=== PATIENT | female | born 1955 | race Caucasian/White ===

== ENCOUNTER → 2017-02-09 | Outpatient (CLI) | payer OTHER ==
[~2017-02-09] MED LIST: ACET50TA PO; ALBU17IN INH; BACT800T5 PO; CALC600T10 PO; CALCTAB7 PO; CEFD1CAP8 PO; CEFD300CAP PO; CEPH2CAP PO; COUM10TA PO; COUM7.5T PO; DARV100T PO; MOME50SP; MULTCAP PO; NEXI40CA PO; NEXI40GR PO; SING10TA32 PO; VITA100066 PO; VITA200015 PO; VITA500C24 PO; VITA500T88 PO; VITAD1000T PO; VITMTA PO; WARF-23 PO
[2017-02-09 06:36] LABS: MEAN CORPUSCULAR HEMOGLOBIN 29.2 pg (27.0-33.0); MEAN CORPUSCULAR HGB CONC 33.4 g/dl (32.0-36.5); MEAN CORPUSCULAR VOLUME 87.5 fl (80.0-96.0); RED CELL DISTRIBUTION WIDTH 13.3 % (11.5-14.5)
[2017-02-09 06:55] LABS: ANION GAP 6 MEQ/L (8-16); BLOOD UREA NITROGEN 15 MG/DL (7-18); CALCIUM LEVEL 8.3 MG/DL (8.5-10.1); CARBON DIOXIDE LEVEL 27 MEQ/L (21-32); CHLORIDE LEVEL 107 MEQ/L (98-107); CHOLESTEROL LEVEL 211 MG/DL (<200); CREATININE FOR GFR 0.98 MG/DL (0.55-1.02); GLOMERULAR FILTRATION RATE > 60.0 (>51); GLUCOSE, FASTING 102 MG/DL (70-105); SODIUM LEVEL 140 MEQ/L (136-145); TRIGLYCERIDES LEVEL 191 MG/DL (<150)
== END ==
LOC: M LAB 06:01
PROVIDERS: ATTEND Nurse Practitioner Adult Health
DX: J45.30 Mild persistent asthma, uncomplicated (principal); R03.0 Elevated blood-pressure reading, without diagnosis of hypertension; Z79.01 Long term (current) use of anticoagulants

== ENCOUNTER → 2017-09-08 | Outpatient (CLI) | payer OTHER ==
[~2017-09-08] MED LIST changes: -CALC600T10 PO; +CALC600T31 PO
[2017-09-08 06:48] LABS: BASO % 0.4 % (0.0-1.0); EOS # 0.1 10^3/uL (0.0-0.50); EOS % 0.8 % (0.0-3.0); IMMATURE GRANULOCYTE % 0.3 % (0-0); LYMPH # 2.9 10^3/uL (1.5-4.5); LYMPH % 37.6 % (24.0-44.0); MEAN CORPUSCULAR HEMOGLOBIN 28.6 pg (27.0-33.0); MEAN CORPUSCULAR HGB CONC 33.4 g/dl (32.0-36.5); MEAN CORPUSCULAR VOLUME 85.7 fl (80.0-96.0); MONO # 0.4 10^3/uL (0.0-0.8); MONO % 5.6 % (0.0-5.0); NEUTROPHILS # 4.3 10^3/uL (1.8-7.7); NEUTROPHILS % 55.3 % (36.0-66.0); PLATELET COUNT, AUTOMATED 231 10^3/uL (150-450); WHITE BLOOD COUNT 7.8 10^3/uL (4.0-10.0)
[2017-09-08 07:21] LABS: ANION GAP 9 MEQ/L (8-16); BLOOD UREA NITROGEN 19 MG/DL (7-18); CALCIUM LEVEL 8.6 MG/DL (8.8-10.2); CARBON DIOXIDE LEVEL 27 MEQ/L (21-32); CHLORIDE LEVEL 105 MEQ/L (98-107); CHOLESTEROL LEVEL 179 MG/DL (<200); CREATININE FOR GFR 0.97 MG/DL (0.55-1.02); GLOMERULAR FILTRATION RATE > 60.0 (>45); GLUCOSE, FASTING 97 MG/DL (80-110); POTASSIUM SERUM 4.2 MEQ/L (3.5-5.1); SODIUM LEVEL 141 MEQ/L (136-145); TRIGLYCERIDES LEVEL 123 MG/DL (<150)
== END ==
LOC: M LAB 06:18
PROVIDERS: ATTEND Nurse Practitioner Adult Health
DX: Z00.00 Encounter for general adult medical examination without abnormal findings (principal); E78.5 Hyperlipidemia, unspecified; Z79.01 Long term (current) use of anticoagulants

== ENCOUNTER → 2018-02-22 | Outpatient (CLI) | payer OTHER ==
[2018-02-22 06:45] LABS: BASO % 0.4 % (0.0-1.0); EOS # 0.2 10^3/uL (0.0-0.50); HEMOGLOBIN 13.5 g/dl (12.0-15.5); IMMATURE GRANULOCYTE % 0.5 % (0-3.0); LYMPH # 3.1 10^3/uL (1.5-4.5); LYMPH % 40.8 % (24.0-44.0); MEAN CORPUSCULAR HEMOGLOBIN 29.7 pg (27.0-33.0); MEAN CORPUSCULAR HGB CONC 34.6 g/dl (32.0-36.5); MEAN CORPUSCULAR VOLUME 85.7 fl (80.0-96.0); MONO # 0.4 10^3/uL (0.0-0.8); MONO % 5.2 % (0.0-5.0); NEUTROPHILS # 3.9 10^3/uL (1.8-7.7); NEUTROPHILS % 51.1 % (36.0-66.0); PLATELET COUNT, AUTOMATED 209 10^3/uL (150-450); RED BLOOD COUNT 4.55 10^6/uL (4.00-5.40); RED CELL DISTRIBUTION WIDTH 13.4 % (11.5-14.5); WHITE BLOOD COUNT 7.5 10^3/uL (4.0-10.0)
[2018-02-22 07:09] LABS: ALBUMIN 3.7 GM/DL (3.2-5.2); ALBUMIN/GLOBULIN RATIO 1.16 (1.00-1.93); ALKALINE PHOSPHATASE 124 U/L (45-117); ALT/SGPT 31 U/L (12-78); ANION GAP 7 MEQ/L (8-16); AST/SGOT 17 U/L (7-37); BILIRUBIN,TOTAL 0.3 MG/DL (0.2-1.0); BLOOD UREA NITROGEN 19 MG/DL (7-18); CALCIUM LEVEL 8.5 MG/DL (8.8-10.2); CARBON DIOXIDE LEVEL 26 MEQ/L (21-32); CHLORIDE LEVEL 108 MEQ/L (98-107); CREATININE FOR GFR 1.07 MG/DL (0.55-1.30); GLOMERULAR FILTRATION RATE 55.7 (>45); GLUCOSE, FASTING 109 MG/DL (70-100); POTASSIUM SERUM 4.2 MEQ/L (3.5-5.1); SODIUM LEVEL 141 MEQ/L (136-145); TOTAL PROTEIN 6.9 GM/DL (6.4-8.2)
[2018-02-22 10:46] LABS: CA15-3 ANTIGEN 5.6 U/ML (<32.4)
[2018-02-23 11:31] LABS: HEPATITIS C VIRUS ABY INDEX < 0.0 INDEX (<0.8)
== END ==
LOC: M LAB 06:07
DX: R11.0 Nausea (principal); Z85.3 Personal history of malignant neoplasm of breast; Z01.89 Encounter for other specified special examinations; R05 Cough
CPT/HCPCS: 71046

== ENCOUNTER → 2018-03-07 | Outpatient (CLI) | payer OTHER ==
[2018-03-07 06:50] LABS: ESTIMATED AVERAGE GLUCOSE 108 MG/DL (60-110); HEMOGLOBIN A1c 5.4 %
== END ==
LOC: M LAB 06:08
DX: R73.01 Impaired fasting glucose (principal)
CPT/HCPCS: 83036

== ENCOUNTER → 2018-03-24 | Outpatient (CLI) | payer OTHER ==
[~2018-03-24] MED LIST changes: -ACET50TA PO; -ALBU17IN INH; -BACT800T5 PO; -CALC600T31 PO; -CALCTAB7 PO; -CEFD1CAP8 PO; -CEFD300CAP PO; -CEPH2CAP PO; -COUM10TA PO; -COUM7.5T PO; -DARV100T PO; +ISOVUE-370 76% 100ML VIAL (Q9967) As Ordered; -MOME50SP; -MULTCAP PO; -NEXI40CA PO; -NEXI40GR PO; -SING10TA32 PO; -VITA100066 PO; -VITA200015 PO; -VITA500C24 PO; -VITA500T88 PO; -VITAD1000T PO; -VITMTA PO; -WARF-23 PO
[2018-03-29 10:16] LABS: L PNEUMOPHILIA 1-6 IgG <1:128 (<1:128)
[2018-03-29 10:16] LABS: L PNEUMOPHILIA 1-6 IgM < 1:16 (< 1:16); MYCOPLASMA PNEUMONIAE IgG 222 U/mL (0-99); MYCOPLASMA PNEUMONIAE IgM <770 U/mL (0-769)
== END ==
LOC: M RAD 06:34
DX: R05 Cough (principal); D35.00 Benign neoplasm of unspecified adrenal gland
CPT/HCPCS: 71250

== ENCOUNTER → 2018-04-12 | Outpatient (CLI) | payer OTHER ==
[~2018-04-12] MED LIST changes: -ISOVUE-370 76% 100ML VIAL (Q9967) As Ordered; +METHACHOLINE KIT (J7674) INH
== END ==
LOC: M CARPUL 09:55
DX: R05 Cough (principal)
CPT/HCPCS: J7674

== ENCOUNTER → 2018-10-26 | Outpatient (CLI) | payer OTHER ==
[~2018-10-26] MED LIST changes: +ACET50TA PO; +ALBU17IN INH; +BACT800T5 PO; +CALC600T31 PO; +CALCTAB7 PO; +CEFD1CAP8 PO; +CEFD300CAP PO; +CEPH2CAP PO; +COUM10TA PO; +COUM7.5T PO; +DARV100T PO; -METHACHOLINE KIT (J7674) INH; +MOME50SP; +MULTCAP PO; +NEXI40CA PO; +NEXI40GR PO; +SING10TA32 PO; +VITA100066 PO; +VITA200015 PO; +VITA500C24 PO; +VITA500T88 PO; +VITAD1000T PO; +VITMTA PO; +WARF-23 PO
[2018-10-26 07:11] LABS: BASO % 0.4 % (0.0-1.0); EOS # 0.1 10^3/uL (0.0-0.50); EOS % 1.4 % (0.0-3.0); HEMATOCRIT 41.8 % (36.0-47.0); HEMOGLOBIN 13.8 g/dl (12.0-15.5); LYMPH # 3.3 10^3/uL (1.5-4.5); LYMPH % 41.2 % (24.0-44.0); MEAN CORPUSCULAR HEMOGLOBIN 28.8 pg (27.0-33.0); MEAN CORPUSCULAR VOLUME 87.1 fl (80.0-96.0); MONO # 0.4 10^3/uL (0.0-0.8); MONO % 4.6 % (0.0-5.0); NEUTROPHILS # 4.2 10^3/uL (1.8-7.7); PLATELET COUNT, AUTOMATED 216 10^3/uL (150-450); WHITE BLOOD COUNT 8.1 10^3/uL (4.0-10.0)
[2018-10-26 07:23] LABS: CALCIUM LEVEL 8.6 MG/DL (8.8-10.2); CREATININE FOR GFR 1.03 MG/DL (0.55-1.30); POTASSIUM SERUM 4.5 MEQ/L (3.5-5.1)
== END ==
LOC: M LAB 06:18
PROVIDERS: ATTEND Nurse Practitioner Adult Health
DX: R01.1 Cardiac murmur, unspecified (principal)

== ENCOUNTER → 2018-11-22 | Outpatient (CLI) | payer OTHER ==
--- NOTE | 2018-11-22 20:54 | ECHO ---
DATE OF PROCEDURE: 11/22/2018 REFERRING PROVIDER: Fang Jung INDICATION: History of aortic valve endocarditis. Height 157 cm, weight 104 kg. DIMENSIONS: IVS: 1.0 LV: 5.2 LVPW: 0.9 LA: 3.7 Aorta: 3.2 RV: 3.1 Mitral E wave velocity: 102 A wave: 88 Tissue Doppler velocities were not documented. IVC: 1.1 FINDINGS: The study is of rather limited technical quality apparently due to bilateral breast implants and also body habitus. The patient is in sinus rhythm. Left ventricle is of normal size and overall preserved systolic function, I estimate ejection fraction (EF) around 60-65%. No segmental wall motion abnormalities are appreciated. Right ventricle is also normal size and systolic function. Both atria appear at least mildly enlarged but were poorly seen. Aortic valve was poorly visualized. It appears trileaflet, and there is definitely some thickening of leaflets. Unfortunately the visualization was not sufficient to provide adequate anatomical description. Mitral valve appears grossly normal. Tricuspid valve also appears normal. Pulmonic valve was not well seen. No pericardial effusion is noted. Inferior vena cava is normal size. Aortic root is normal size. Aortic arch and abdominal aorta were reasonably well seen and appear grossly normal. Doppler interrogation of aortic valve reveals no stenosis and mild insufficiency. There is trace mitral insufficiency. Tricuspid valve is functionally competent. Mitral inflow pattern is normal but tissue Doppler imaging of the mitral annulus was not performed, but I assume probably normal diastolic function of left ventricle. CONCLUSIONS: 1. Study is of fair technical quality with difficult visualization. 2. Normal left ventricular (LV) size with preserved LV systolic function and probably normal diastolic function. 3. Sclerotic abnormality of trileaflet aortic valve with no visualized vegetations, no stenosis and mild insufficiency. 4. Trace mitral insufficiency. 5. Likely normal central venous pressure. 6. Unable to estimate pulmonary artery pressure. COMMENT: Subacute bacterial endocarditis (SBE) prophylaxis is recommended. MTDD
== END ==
LOC: M CARPUL 08:29
PROVIDERS: ATTEND Nurse Practitioner Adult Health
DX: Z86.79 Personal history of other diseases of the circulatory system (principal); I33.0 Acute and subacute infective endocarditis; I34.0 Nonrheumatic mitral (valve) insufficiency; Z98.82 Breast implant status; R93.9 Diagnostic imaging inconclusive due to excess body fat of patient

== ENCOUNTER → 2018-12-22 | Outpatient (CLI) | payer OTHER ==
[~2018-12-22] MED LIST changes: +ALBU83IN NEB; +IPRA3SP; +LEVAINH INH; +MOME50SP2; +XARE20TA
[2018-12-22 07:13] LABS: BASO % 0.4 % (0.0-1.0); EOS # 0.1 10^3/uL (0.0-0.50); EOS % 1.4 % (0.0-3.0); HEMATOCRIT 41.2 % (36.0-47.0); HEMOGLOBIN 13.8 g/dl (12.0-15.5); LYMPH # 3.2 10^3/uL (1.5-4.5); LYMPH % 41.5 % (24.0-44.0); MEAN CORPUSCULAR HEMOGLOBIN 28.8 pg (27.0-33.0); MEAN CORPUSCULAR HGB CONC 33.5 g/dl (32.0-36.5); MEAN CORPUSCULAR VOLUME 85.8 fl (80.0-96.0); MONO # 0.4 10^3/uL (0.0-0.8); MONO % 4.6 % (0.0-5.0); NEUTROPHILS % 51.8 % (36.0-66.0); PLATELET COUNT, AUTOMATED 206 10^3/uL (150-450); WHITE BLOOD COUNT 7.6 10^3/uL (4.0-10.0)
[2018-12-22 07:28] LABS: INR 1.03; PROTHROMBIN TIME 13.6 SECONDS (12.1-14.4)
[2018-12-22 07:37] LABS: ALBUMIN 3.6 GM/DL (3.2-5.2); ALT/SGPT 21 U/L (12-78); BILIRUBIN,TOTAL 0.3 MG/DL (0.2-1.0); BLOOD UREA NITROGEN 24 MG/DL (7-18); CALCIUM LEVEL 8.9 MG/DL (8.8-10.2); CARBON DIOXIDE LEVEL 25 MEQ/L (21-32); CHLORIDE LEVEL 107 MEQ/L (98-107); CREATININE FOR GFR 0.96 MG/DL (0.55-1.30); GLOMERULAR FILTRATION RATE > 60.0 (>45); GLUCOSE, FASTING 105 MG/DL (70-100); POTASSIUM SERUM 4.3 MEQ/L (3.5-5.1); SODIUM LEVEL 139 MEQ/L (136-145); TOTAL PROTEIN 6.9 GM/DL (6.4-8.2)
--- NOTE | 2018-12-22 09:37 | REP ---
Chest x-ray: Two views. History: Preoperative testing. History of malignant neoplasm of the breast. Capsular contraction breast implant. Findings: There are bilateral axillary surgical clips. The lungs are symmetrically aerated and clear. Pleural angles are sharp. Heart size is normal. Pulmonary vasculature is not increased. No significant bony abnormality. Impression: No active cardiopulmonary disease seen. Electronically Signed by Chepe Kent MD 12/22/2018 12:01 P
== END ==
LOC: M LAB 06:42
PROVIDERS: ATTEND Plastic Surgery Surgery of the Hand
DX: Z01.818 Encounter for other preprocedural examination (principal); Z85.3 Personal history of malignant neoplasm of breast; T85.44XA Capsular contracture of breast implant, initial encounter

== ENCOUNTER → 2019-06-02 | Outpatient (CLI) | payer OTHER ==
[~2019-06-02] MED LIST changes: -ACET50TA PO; +CEFD300C41 PO; -CEFD300CAP PO; +MAPA500T17 PO; +PERC5TAB12 PO
--- NOTE | 2019-06-08 14:31 | DEXA ---
AP SPINE L1 - L4 1.067 -1.0 0.3 LT FEMUR TOTAL 0.954 -0.4 0.6 LT NECK 0.886 -1.1 0.2 RT FEMUR TOTAL 1.017 0.1 1.1 RT NECK 0.927 -0.8 0.5 TOTAL BODY TOTAL OTHER COMMENTS: Normal bone densitometry of the right hip. There is low bone density of the spine. There is low bone density of the left hip. The decreased density of the spine does not represent a significant change. The decreased density of the left hip does represent a significant change. The decreased density of the right hip does not represent a significant change. The density of the spine has decreased 5.0% since the initial exam on 08/03/2007. The spine density has decreased 1.5% since the most recent exam on 12/16/2015. The density of the left hip has decreased 3.8% since the initial exam on 08/03/2007. The density of the left hip has decreased 2.0% since the most recent exam on 12/16/2015. The density of the right hip has decreased 5.2% since the initial exam on 08/03/2007. The density of the right hip has decreased 1.4% since the most recent exam on 12/16/2015. FOLLOW-UP: Recommendation for the next bone density exam: 2 years. ENOCH
== END ==
LOC: M WHC 12:44
PROVIDERS: ATTEND Obstetrics & Gynecology
DX: M85.88 Other specified disorders of bone density and structure, other site (principal); M85.852 Other specified disorders of bone density and structure, left thigh

== ENCOUNTER → 2019-07-19 | Outpatient (REF) | payer OTHER ==
[2019-07-19 16:17] LABS: HEMOGLOBIN A1c 5.9 %
== END ==
LOC: M LABDRAW1 13:28
PROVIDERS: ATTEND Surgery
DX: Z86.39 Personal history of other endocrine, nutritional and metabolic disease (principal)

== ENCOUNTER → 2019-09-11 | Outpatient (CLI) | payer OTHER ==
--- NOTE | 2019-09-11 12:57 | REP ---
Whole body radionuclide bone scan: History: Breast cancer. New progressive bone pain. Comparison bone scan August 22, 2014. Technique: 22.0 mCi technetium 99m MDP is injected and standard whole body bone scan imaging was acquired. Scintigraphic findings: There is arthritic uptake in the knees bilaterally. Mild osteoarthritic uptake is seen in the left ankle and in bilateral midfoot articulations. These findings are unchanged. There is no abnormal skeletal focus of increased uptake to suggest metastatic disease. There is uptake in bilateral kidneys and the urinary bladder. Impression: No evidence to suggest skeletal metastatic disease. Electronically Signed by Chepe Kent MD 09/11/2019 12:48 P
== END ==
LOC: M RAD 08:51
PROVIDERS: ATTEND Radiology Radiation Oncology
DX: M89.8X0 Other specified disorders of bone, multiple sites (principal); C50.919 Malignant neoplasm of unspecified site of unspecified female breast
CPT/HCPCS: 78306; A9503

== ENCOUNTER → 2019-10-16 | Outpatient (CLI) | payer OTHER ==
[2019-10-16 11:16] LABS: BASO % 0.4 % (0.0-1.0); EOS # 0.1 10^3/uL (0.0-0.5); EOS % 1.6 % (0.0-3.0); HEMATOCRIT 43.9 % (36.0-47.0); LYMPH # 3.8 10^3/uL (1.5-5.0); LYMPH % 49.4 % (24.0-44.0); MEAN CORPUSCULAR HEMOGLOBIN 28.1 pg (27.0-33.0); MEAN CORPUSCULAR HGB CONC 31.9 g/dl (32.0-36.5); MEAN CORPUSCULAR VOLUME 88.2 fl (80.0-96.0); MONO # 0.4 10^3/uL (0.0-0.8); MONO % 4.8 % (0.0-5.0); NEUTROPHILS # 3.4 10^3/uL (1.5-8.5); NEUTROPHILS % 43.5 % (36.0-66.0); PLATELET COUNT, AUTOMATED 224 10^3/uL (150-450); RED BLOOD COUNT 4.98 10^6/uL (4.00-5.40); WHITE BLOOD COUNT 7.7 10^3/uL (4.0-10.0)
[2019-10-16 11:53] LABS: ALBUMIN 4.1 GM/DL (3.2-5.2); BILIRUBIN,TOTAL 0.5 MG/DL (0.2-1.0); CALCIUM LEVEL 9.1 MG/DL (8.8-10.2); CREATININE FOR GFR 1.04 MG/DL (0.55-1.30); GLOMERULAR FILTRATION RATE 57.2 (>45); POTASSIUM SERUM 4.2 MEQ/L (3.5-5.1); THYROID STIMULATING HORMONE 2.49 uIU/ML (0.358-3.740); TOTAL PROTEIN 7.5 GM/DL (6.4-8.2)
[2019-10-16 11:57] LABS: HEMOGLOBIN A1c 5.9 %
== END ==
LOC: M LAB 10:11
PROVIDERS: ATTEND Surgery
DX: Z01.818 Encounter for other preprocedural examination (principal); I38 Endocarditis, valve unspecified; Z86.39 Personal history of other endocrine, nutritional and metabolic disease

== ENCOUNTER → 2019-12-04 | Outpatient (REF) | payer OTHER ==
[2019-12-04 16:52] LABS: HEMATOCRIT 42.3 % (36.0-47.0)
[2019-12-04 17:25] LABS: PERCENT SATURATION 16.2 % (13.2-45.0); PHOSPHORUS LEVEL 2.7 MG/DL (2.5-4.9)
== END ==
LOC: M LAB REF 16:18
PROVIDERS: ATTEND Nurse Practitioner Adult Health
DX: K91.2 Postsurgical malabsorption, not elsewhere classified (principal); Z98.84 Bariatric surgery status

== ENCOUNTER → 2020-05-27 | Outpatient (REF) | payer OTHER | LOC: M LAB REF 18:57 | PROVIDERS: ATTEND Surgery | DX: D17.1 Benign lipomatous neoplasm of skin and subcutaneous tissue of trunk (principal); D48.5 Neoplasm of uncertain behavior of skin ==

== ENCOUNTER → 2020-06-12 | Outpatient (REF) | payer OTHER ==
[2020-06-12 17:05] LABS: PERCENT SATURATION 35.9 % (13.2-45.0); PHOSPHORUS LEVEL 2.8 MG/DL (2.5-4.9)
== END ==
LOC: M LAB REF 16:10
PROVIDERS: ATTEND Nurse Practitioner Adult Health
DX: K91.2 Postsurgical malabsorption, not elsewhere classified (principal); Z98.84 Bariatric surgery status

== ENCOUNTER → 2020-07-24 | Outpatient (CLI) | payer SELFPAY | LOC: M LABSMTC 11:34 → EEVIPCON 11:34 | PROVIDERS: ATTEND Pediatrics | DX: Z01.818 Encounter for other preprocedural examination (principal) ==

== ENCOUNTER → 2020-11-25 | Outpatient (REF) | payer OTHER ==
[2020-11-25 13:17] LABS: HEMATOCRIT 40.4 % (36.0-47.0)
[2020-11-25 13:33] LABS: PHOSPHORUS LEVEL 3.2 MG/DL (2.5-4.9)
== END ==
LOC: M LAB REF 12:10
PROVIDERS: ATTEND Nurse Practitioner Adult Health
DX: K91.2 Postsurgical malabsorption, not elsewhere classified (principal); Z98.84 Bariatric surgery status; Z86.39 Personal history of other endocrine, nutritional and metabolic disease

== ENCOUNTER → 2020-12-18 | Outpatient (CLI) | payer OTHER ==
[~2020-12-18] MED LIST changes: +ISOVUE-370 76% 100ML VIAL As Ordered ONE
--- NOTE | 2020-12-18 08:42 | REP ---
INDICATION: MAL JOSE OF RT BREAST. Encounter for breast reconstruction following mastectomy. The patient reports an area of pain/itchiness around the central left scapula. COMPARISON: Comparison chest CT study March 24, 2018.. TECHNIQUE: 50 mL of intravenous Isovue 370 is administered and helical scanning is acquired. 3 mm axial images re-formatted. Coronal and sagittal MPR images are generated and coronal MIP images are provided. FINDINGS: Patient appears to be status post bilateral mastectomy with augmentation implant on the left and what appears to be tram flap reconstruction on the right. There are surgical clips along the right chest wall and in the left axilla. These findings are unchanged from the 2018 prior study. Digital preliminary peripheral edp equipment operator radiograph is unremarkable. On axial CT images, the lung kramer are clear. No infiltrate, mass, or significant pulmonary nodule is seen. No pleural effusion is seen. There is no evidence of pericardial effusion. No hilar or mediastinal mass or adenopathy is observed. No filling defect is seen in the pulmonary arterial tree. There is some focal calcification at the level of the aortic valve leaflets. This appears more prominent on today's CT study. No other vascular abnormality is observed. Images through the upper abdomen demonstrate gastric bypass sutures. No adrenal mass or upper abdominal adenopathy is seen. Visualized upper abdominal structures are otherwise unremarkable. No axillary mass, adenopathy or extra thoracic soft tissue lesion is appreciated. No supraclavicular nodes are seen. On bone window settings, no bony destructive lesion is appreciated. No scapular or Eli scapular lesion is seen on either side. IMPRESSION: Status post bilateral mastectomy and reconstruction as above. No evidence of mass, adenopathy or recurrence. Aortic valve leaflet level calcification, question aortic valve disease. Otherwise no active disease seen. <Electronically signed by Rene Kent > 12/18/20 [id number]
== END ==
LOC: M RAD 07:44
PROVIDERS: ATTEND Plastic Surgery Surgery of the Hand
DX: C50.411 Malignant neoplasm of upper-outer quadrant of right female breast (principal); Z42.1 Encounter for breast reconstruction following mastectomy
CPT/HCPCS: 71260; Q9967

== ENCOUNTER → 2021-03-05 | Outpatient (REF) | payer OTHER ==
[~2021-03-05] MED LIST changes: -ISOVUE-370 76% 100ML VIAL As Ordered ONE
== END ==
LOC: M LAB REF 11:11
PROVIDERS: ATTEND Nurse Practitioner Adult Health
DX: R21 Rash and other nonspecific skin eruption (principal)

== ENCOUNTER → 2021-03-14 | Outpatient (CLI) | payer OTHER ==
--- NOTE | 2021-03-14 12:04 | REP ---
INDICATION: PAIN COMPARISON: None. TECHNIQUE: Two views right hip. FINDINGS: There is no evidence of acute fracture, dislocation, or intrinsic bone disease.Metallic clips are seen in the right inguinal region. IMPRESSION: No fracture or dislocation. No significant arthritic changes. <Electronically signed by Aaron Sofia > 03/14/21 1200
--- NOTE | 2021-03-14 13:30 | REP ---
INDICATION: PAIN. COMPARISON: Lumbosacral spine MRI 04/30/2011 TECHNIQUE: Three views sacrum and coccyx. FINDINGS: Sacrum and coccyx appear intact, with no fracture or bone lesion identified. There is severe degenerative disc disease at the L5-S1 level. There is severe disc space narrowing and there is mild to moderate subchondral sclerosis. There is anterior grade 1 spondylolisthesis of L5 on S1, likely due to pars defects at L5. Sclerosis and hypertrophic changes are seen at the posterior facet joints of L5-S1 as well as L4-5. IMPRESSION: The sacrum and coccyx appear unremarkable. However, there is significant arthritic change of the lower lumbar spine as discussed in detail above, with suspected pars defects at L5 and anterior grade 1 spondylolisthesis of L5 on S1. <Electronically signed by Aaron Sofia > 03/14/21 [id number]
== END ==
LOC: M WUC 10:41
PROVIDERS: ATTEND Nurse Practitioner Adult Health
DX: M25.551 Pain in right hip (principal); M51.37 Other intervertebral disc degeneration, lumbosacral region

== ENCOUNTER → 2021-04-07 | Outpatient (CLI) | payer OTHER ==
--- NOTE | 2021-04-07 11:31 | DEXAMM ---
INDICATION: PERSONAL RISK FACTORS/Z91.89. COMPARISON: The most recent comparison study is dated December 16, 2015 in the most remote available prior is from August 03, 2007.. TECHNIQUE: Bone density was measured using dual-energy x-ray absorptionmetry (DEXA). FINDINGS: AP SPINE L1-L4 BMD 1.003 g/cm2 Young Adult T-Score -1.5 Age Matched Z-Score 0.0. LT FEMUR, TOTAL BMD 0.881 g/cm2 Young Adult T-Score -1.0 Age Matched Z-Score 0.1. LT NECK BMD 0.830 g/cm2 Young Adult T-Score -1.5 Age Matched Z-Score -0.1. RT FEMUR, TOTAL BMD 0.901 g/cm2 Young Adult T-Score -0.8 Age Matched Z-Score 0.3. RT NECK BMD 0.852 g/cm2 Young Adult T-Score -1.3 Age Matched Z-Score 0.1. IMPRESSION: There is low bone density of the spine. There is low bone density of the left hip. There is low bone density of the right hip. The density of the spine has decreased 10.7% since the initial exam on August 03, 2007. The density of the spine decreased 6.0% since most recent exam on June 02, 2019. The density of the left hip has decreased 11.2% since initial exam on August 03, 2007. The density of the left hip has decreased 7.7% since most recent exam on June 02, 2019. The density of the right hip has decreased 16.0% since the initial exam on August 03, 2007. The density of the right hip has decreased 11.4% since the most recent exam on June 02, 2019. FOLLOW-UP: Recommendation for the next bone density exam: 2 years. <Electronically signed by Rene Kent > 04/07/21 1120
== END ==
LOC: M WHC 08:22
PROVIDERS: ATTEND Obstetrics & Gynecology
DX: M85.80 Other specified disorders of bone density and structure, unspecified site (principal); Z91.89 Other specified personal risk factors, not elsewhere classified

== ENCOUNTER → 2021-04-10 | Outpatient (REF) | payer OTHER | LOC: M SFHCPLAZ 15:01 | PROVIDERS: ATTEND Internal Medicine Infectious Disease | DX: A46 Erysipelas (principal) ==

== ENCOUNTER → 2021-05-19 | Outpatient (REF) | payer OTHER | LOC: M SFHCPLAZ 17:20 | PROVIDERS: ATTEND Internal Medicine Infectious Disease | DX: Z22.321 Carrier or suspected carrier of Methicillin susceptible Staphylococcus aureus (principal) ==

== ENCOUNTER → 2021-05-26 | Outpatient (CLI) | payer OTHER ==
[2021-05-28 17:13] LABS: Lyme Disease IgG Ab 18 kDa Ban Absent (.); Lyme Disease IgG Ab 23 kDa Ban Absent (.); Lyme Disease IgG Ab 28 kDa Ban Absent (.); Lyme Disease IgG Ab 30 kDa Ban Absent (.); Lyme Disease IgG Ab 39 kDa Ban Absent (.); Lyme Disease IgG Ab 41 kDa Ban Present (.); Lyme Disease IgG Ab 45 kDa Ban Absent (.); Lyme Disease IgG Ab 58 kDa Ban Absent (.); Lyme Disease IgG Ab 66 kDa Ban Absent (.); Lyme Disease IgG Ab 93 kDa Ban Absent (.); Lyme Disease IgG West Blot Int Negative (.); Lyme Disease IgG/IgM Antibodie 1.22 ISR (0.00-0.90); Lyme Disease IgM Ab 23 kDa Ban Present (.); Lyme Disease IgM Ab 39 kDa Ban Absent (.); Lyme Disease IgM Ab 41 kDa Ban Present (.); Lyme Disease IgM Ab Quantitati 4.34 index (0.00-0.79); Lyme Disease IgM West Blot Int Positive (.)
== END ==
LOC: M LAB 08:43
PROVIDERS: ATTEND Internal Medicine Infectious Disease
DX: A69.20 Lyme disease, unspecified (principal); Z22.321 Carrier or suspected carrier of Methicillin susceptible Staphylococcus aureus

== ENCOUNTER → 2021-05-26 | Outpatient (CLI) | payer OTHER ==
[2021-05-26 10:31] LABS: CALCIUM, URINE 5.7 MG/DL
[2021-05-26 11:45] LABS: CALCIUM, 24 HOUR URINE 168.1 MG/24HR (42-353)
== END ==
LOC: M LAB 08:39
PROVIDERS: ATTEND Internal Medicine Endocrinology, Diabetes & Metabolism
DX: M85.89 Other specified disorders of bone density and structure, multiple sites (principal)

== ENCOUNTER → 2021-06-23 | Outpatient (REF) | payer OTHER ==
[2021-06-23 17:31] LABS: INR 0.93; PROTHROMBIN TIME 12.8 SECONDS (12.7-14.5)
[2021-06-23 17:32] LABS: PARTIAL THROMBOPLASTIN TIME 32.3 SECONDS (25.9-37.0)
== END ==
LOC: M LAB REF 16:31
PROVIDERS: ATTEND Internal Medicine
DX: Z01.818 Encounter for other preprocedural examination (principal)

== ENCOUNTER → 2021-06-25 | Outpatient (CLI) | payer OTHER ==
[~2021-06-25] MED LIST changes: +ALLE180T33 PO; +B-12100011 PO; +CALC600T60 PO; +COLAGEN PO; +D31000TA2 PO
--- NOTE | 2021-06-26 04:37 | REP ---
INDICATION: PRE OP COMPARISON: 12/22/2018 TECHNIQUE: PA and lateral. FINDINGS: The mediastinum and cardiac silhouette are normal. The lung kramer are clear and without acute consolidation, effusion, or pneumothorax. The skeletal structures are intact and normal. Surgical clips noted right axillary region and bilateral breasts. IMPRESSION: No acute cardiopulmonary process. <Electronically signed by Herber Martinez > 06/26/21 0433
== END ==
LOC: M ADAMS 13:12
PROVIDERS: ATTEND Internal Medicine
DX: Z01.818 Encounter for other preprocedural examination (principal)

== ENCOUNTER → 2021-06-28 | Outpatient (CLI) | payer OTHER | LOC: M LABSMTC 09:11 | PROVIDERS: ATTEND Anesthesiology | DX: Z20.828 Contact with and (suspected) exposure to other viral communicable diseases (principal); Z11.52 Encounter for screening for COVID-19 ==

== ENCOUNTER 2021-07-03 06:08 | Day surgery (SDC) | payer OTHER ==
[~2021-07-03] VITALS: Ht 157.5 cm; Wt 70.3 kg
[~2021-07-03 06:08] MED LIST changes: +LR 1,000 ML IV ONE; +ceFAZolin SOD 2 GM in IV 1 EA IV ONE
[2021-07-03] MEDS ORDERED: ROCURONIUM BROMIDE 50 MG/5 ML VIAL As Ordered ONE ×2 (07:21→09:03)
[2021-07-03] MEDS ORDERED: propofoL 200 MG/20 ML VIAL As Ordered ONE (07:21)
[2021-07-03] MEDS ORDERED: dexameTHASONE 4 MG/ML 1ML VIAL (J1100 PER 1MG) As Ordered ONE (07:21)
[2021-07-03] MEDS ORDERED: LIDOCAINE 2% 100MG/5ML SDV (FOR ANES.) As Ordered ONE (07:21)
[2021-07-03] MEDS ORDERED: ONDANSETRON 4MG/2ML VIAL As Ordered ONE (07:21)
[2021-07-03] MEDS ORDERED: fentaNYL 250 MCG/5 ML INJECTION (J3010) As Ordered ONE (07:22)
[2021-07-03] MEDS ORDERED: MIDAZOLAM INJ 2MG/2ML VIAL (J2250 PER 1MG) As Ordered ONE (07:22)
[2021-07-03] MEDS ORDERED: BUPIVACAINE LIPOSOME/PF 1.3% 20ML VIAL (13.3MG/ML)(EXPAREL)(C9290 PER1MG) As Ordered ONE (07:25)
[2021-07-03] MEDS ORDERED: GENTAMICIN SULF 80MG/2ML VIAL As Ordered ONE (07:25)
[2021-07-03] MEDS ORDERED: LIDOCAINE 1% MDV 20ML VIAL As Ordered ONE (07:25)
[2021-07-03] MEDS ORDERED: EPINEPHrine INJ 1 MG/ML 1ML AMP As Ordered ONE (07:25)
[2021-07-03] MEDS ORDERED: SCOPOLAMINE 1MG TRANSDERMAL PATCH As Ordered ONE (07:33)
[2021-07-03] MEDS ORDERED: SCOPOLAMINE 1MG TRANSDERMAL PATCH TOP ONE (07:35)
[2021-07-03] MEDS ORDERED: ePHEDrine SULFATE 25 MG/5 ML(5MG/ML) SYRINGE As Ordered ONE (08:07)
[2021-07-03] MEDS ORDERED: LACRILUBE (AKWA TEARS) OPHTH OINT 3.5 GM As Ordered ONE (08:42)
[2021-07-03] MEDS ORDERED: ACETAMINOPHEN 1000MG 100ML IV BTL (OFIRMEV) (J0131 PER 10MG) As Ordered ONE (08:42)
[2021-07-03] MEDS ORDERED: SUGAMMADEX SODIUM 500 MG/5 ML VIAL (BRIDION) As Ordered ONE (08:42)
[2021-07-03] MEDS ORDERED: HYDROmorphone HCL 2 MG/ML 1ML VIAL As Ordered ONE (08:43)
--- NOTE | 2021-07-03 10:08 | ROOPDOC ---
[facility] Report Of Operation Report of Operation DATE OF PROCEDURE: 07/03/21 PREOPERATIVE DIAGNOSIS: Asymmetry left reconstructed breast. Left lateral chest mass. POSTOPERATIVE DIAGNOSIS: same PROCEDURE: Revision left breast reconstruction with exchange of implant, excision mass left lateral chest. SURGEON: Dr Robertson RADIOLOGIC THERAPIST: none ANESTHESIA: general ESTIMATED BLOOD LOSS: 20 cc FINDINGS: Left lateral chest mass. Left breast implant [place] smooth style 20, 500 cc. Intact SPECIMENS: Left breast capsule. Left breast implant. COMPLICATIONS: none REPLACED: none DRAINS: 15 Fr round left chest IMPLANTS: [place] smooth moderate plus profile Xtra. 545 cc. ref: [id number] POSTOPERATIVE CONDITION: stable DESCRIPTION OF PROCEDURE: Procedure: This is a 66-year-old female status post bilateral mastectomies with right breast LUIS ANGEL flap reconstruction and left breast forklift technician to implant reconstruction. Patient found rippling of the implant and pain in her left breast therefore we are going to exchange her implant to a new implant and doing open capsulotomy. Patient has no information regarding size and type of implant that was used. Also she has noticed hard mass in the left lateral chest which became more noticeable in the past several months. She is scheduled to have it removed as well. Risk, benefits and alternatives of the procedure discussed with the patient in detail and she is ready to proceed. The day of surgery. Informed consent was confirmed and then patient was brought into the operating room, placed in supine position. General anesthesia was induced. She was given preoperative antibiotics, heparin and sequential stockings were placed in the lower calves. She is prepped and draped in the usual sterile fashion. Started our procedure from the left breast. Horizontal incision was opened excising the old scar. This area of pocket is very thin. The capsule was encountered and entered the pocket. We identified smooth gel implant which was completely intact. Upon removal we found it is 500 cc [place] round smooth implant. Open capsulotomy was performed using electrocautery. Piece of anterior capsule was excised and sent to pathology. Implant was introduced at the table in sterile conditions and soaked in gentamicin irrigation. The pocket was irrigated with gentamicin irrigation and local block with Exparel 10 cc was given. Then 545 cc [place] round smooth gel extra fill implant was introduced into the pocket through "no touch" technique with Avila funnel without difficulties. It appears a good fit. The pocket was closed in layers with interrupted 3-0 Vicryl and 3-0 Monocryl sutures. Prineo dressing was applied to the incision. Then the drapes were removed and the patient was repositioned into the semilateral position with left side up. She was prepped and draped in usual sterile fashion. She has current lateral chest incision which was opened from its lateral portion extending 7 cm. Careful dissection identified large lipoma which was removed at all entirety, it was partially encapsulated and some pieces were not fully encapsulated. Hemostasis obtained using electrocautery. 15 [place] round drain was placed through the separate stab incision and incision was then closed in layers with interrupted 3-0 Vicryl, 3-0 Monocryl, and 4-0 Monocryl and sutures. Prineo dressing is applied. Bulky dressing and a surgical bra was applied. Patient tolerated procedure well. She was extubated in operating room without any difficulties and transferred to recovery room in stable condition. DEENA ROBERTSON DO Jul 03, 2021 10:08
--- NOTE | 2021-07-03 10:08 | POST-OPPD ---
Postoperative Procedure Note Date Of Procedure: Jul 03, 2021 PREOPERATIVE DIAGNOSIS: Asymmetry left reconstructed breast. Left lateral chest mass. POSTOPERATIVE DIAGNOSIS: same PROCEDURE: Revision left breast reconstruction with exchange of implant, excision mass left lateral chest. SURGEON: Dr Robertson FAUCETS ASSEMBLER: none ANESTHESIA: general ESTIMATED BLOOD LOSS: 20 cc FINDINGS: Left lateral chest mass. Left breast implant [place] smooth style 20, 500 cc. Intact SPECIMENS: Left breast capsule. Left breast implant. COMPLICATIONS: none REPLACED: none DRAINS: 15 Fr round left chest IMPLANTS: [place] smooth moderate plus profile Xtra. 545 cc. ref: [id number] POSTOPERATIVE CONDITION: stable DEEAN ROBERTSON DO Jul 03, 2021 10:08
[2021-07-03] MEDS ORDERED: TRAM50TA2 PO (10:14)
[2021-07-03] MEDS ORDERED: HYDROMORPHONE HCL 0.5 MG/ 0.5 ML SYRINGE (J1170 PER 1) IV PRN (10:25)
[2021-07-03] MEDS ORDERED: LR 1,000 ML IV SCH (10:25)
[2021-07-03] MEDS ORDERED: oxyCODONE 5MG TAB PO PRN (10:25)
[2021-07-03] MEDS ORDERED: fentaNYL 100 MCG/2 ML INJECTION (J3010) IV PRN (10:25)
[2021-07-03] MEDS ORDERED: ONDANSETRON 4MG/2ML VIAL IV PRN (10:25)
--- NOTE | 2021-07-03 12:20 | POST-OPPD ---
Postoperative Procedure Note Date Of Procedure: Jul 03, 2021 PREOPERATIVE DIAGNOSIS: Contracted scar middle of the back POSTOPERATIVE DIAGNOSIS: same PROCEDURE: Revision middle of the back scar. SURGEON: Dr Robertson CRISIS NURSE: none ANESTHESIA: general ESTIMATED BLOOD LOSS: 5 cc FINDINGS: contracted scar. 9 cm SPECIMENS: scar COMPLICATIONS: none REPLACED: none DRAINS: 15 Fr round POSTOPERATIVE CONDITION: stable DEENA ROBERTSON DO Jul 03, 2021 12:20
[2021-07-03 12:30] VITALS: BP 140/67
== END 2021-07-03 12:40 | disposition home or self-care (01) ==
LOC: M SDC 06:08
PROVIDERS: ATTEND Plastic Surgery Surgery of the Hand
DX: N65.1 Disproportion of reconstructed breast (principal); R22.2 Localized swelling, mass and lump, trunk; D17.1 Benign lipomatous neoplasm of skin and subcutaneous tissue of trunk; N18.30 Chronic kidney disease, stage 3 unspecified; K21.9 Gastro-esophageal reflux disease without esophagitis; M81.0 Age-related osteoporosis without current pathological fracture; Z85.3 Personal history of malignant neoplasm of breast; Z92.3 Personal history of irradiation; Z92.21 Personal history of antineoplastic chemotherapy; D64.9 Anemia, unspecified; Z79.01 Long term (current) use of anticoagulants; Z79.899 Other long term (current) drug therapy; Z88.8 Allergy status to other drugs, medicaments and biological substances; Z79.51 Long term (current) use of inhaled steroids
CPT/HCPCS: 11406; 19380; 88300; 88305; C9290; J0131; J0690; J1100; J1170; J1580; J2250; J2405; J3010; L8600

== ENCOUNTER → 2021-09-29 | Outpatient (CLI) | payer OTHER ==
[~2021-09-29] MED LIST changes: -LR 1,000 ML IV ONE; +TRAM50TA2 PO; -ceFAZolin SOD 2 GM in IV 1 EA IV ONE
== END ==
LOC: M LABSMTC 09:51
PROVIDERS: ATTEND Anesthesiology
DX: Z20.828 Contact with and (suspected) exposure to other viral communicable diseases (principal); Z11.52 Encounter for screening for COVID-19

== ENCOUNTER 2021-10-03 06:57 | Day surgery (SDC) | payer OTHER ==
[~2021-10-03] VITALS: Ht 157.5 cm; Wt 70.8 kg
[~2021-10-03 06:57] MED LIST changes: -CEFD1CAP8 PO; +NS 1,000 ML IV ONE
[2021-10-03] MEDS ORDERED: propofoL 500 MG/50 ML VIAL As Ordered ONE (07:03)
[2021-10-03] MEDS ORDERED: LIDOCAINE 2% 100MG/5ML SDV (FOR ANES.) As Ordered ONE (07:04)
[2021-10-03] MEDS ORDERED: fentaNYL 100 MCG/2 ML INJECTION (J3010) As Ordered ONE (07:04)
[2021-10-03] MEDS ORDERED: ePHEDrine SULFATE 25 MG/5 ML(5MG/ML) SYRINGE As Ordered ONE (07:51)
[2021-10-03 08:40] VITALS: BP 117/89
== END 2021-10-03 08:52 | disposition home or self-care (01) ==
LOC: M OPP 06:57
PROVIDERS: ATTEND Internal Medicine Gastroenterology
DX: Z12.11 Encounter for screening for malignant neoplasm of colon (principal); K57.30 Diverticulosis of large intestine without perforation or abscess without bleeding; K64.0 First degree hemorrhoids; K44.9 Diaphragmatic hernia without obstruction or gangrene; Z98.84 Bariatric surgery status; K22.89 Other specified disease of esophagus; Z79.899 Other long term (current) drug therapy; Z88.8 Allergy status to other drugs, medicaments and biological substances; Z85.3 Personal history of malignant neoplasm of breast; Z92.21 Personal history of antineoplastic chemotherapy; Z92.3 Personal history of irradiation
CPT/HCPCS: 43239; 45378; 88305; J3010

== ENCOUNTER → 2022-05-21 | Outpatient (CLI) | payer MEDICARE, OTHER ==
[~2022-05-21] MED LIST changes: +ALBU2.5V10 NEB; -ALBU83IN NEB; -D31000TA2 PO; -NS 1,000 ML IV ONE; +VITA100093 PO
== END ==
LOC: M PLAIMG 08:49
PROVIDERS: ATTEND Podiatrist
DX: M93.271 Osteochondritis dissecans, right ankle and joints of right foot (principal); M79.671 Pain in right foot; M76.71 Peroneal tendinitis, right leg

== ENCOUNTER → 2023-02-09 | Outpatient (CLI) | payer MEDICARE, OTHER ==
[~2023-02-09] MED LIST changes: +MONT-5 PO; -SING10TA32 PO
[2023-02-09 17:54] LABS: TOTAL IRON BINDING CAPACITY 338 UG/DL (250-425)
[2023-02-09 17:55] LABS: IRON (FE) 73 UG/DL (50-170); PERCENT SATURATION 21.6 % (13.2-45.0)
[2023-02-09 18:00] LABS: FERRITIN 16.7 NG/ML (7.3-270.7)
[2023-02-09 18:02] LABS: TOTAL 25(OH) VITAMIN D 81.1 NG/ML (20.0-100.0)
[2023-02-09 18:22] LABS: VITAMIN B12 LEVEL > 2000 PG/ML (211-911)
== END ==
LOC: M WUC 14:18
PROVIDERS: ATTEND Nurse Practitioner Family
DX: N18.30 Chronic kidney disease, stage 3 unspecified (principal); K91.2 Postsurgical malabsorption, not elsewhere classified; E55.9 Vitamin D deficiency, unspecified; Z98.84 Bariatric surgery status; M79.602 Pain in left arm

== ENCOUNTER → 2023-04-20 | Outpatient (CLI) | payer MEDICARE, OTHER | LOC: M CARPUL 10:08 | PROVIDERS: ATTEND Nurse Practitioner Adult Health | DX: I35.8 Other nonrheumatic aortic valve disorders (principal) ==

== ENCOUNTER 2023-09-20 09:53 | Inpatient (IN) | payer MEDICARE, OTHER ==
[~2023-09-20] VITALS: Ht 157.5 cm; Wt 72.7 kg
[~2023-09-20 09:53] MED LIST changes: +CEFD1CAP9 PO; -MOME50SP2; +MOME50SP2 INH; -XARE20TA; +XARE20TA PO
[2023-09-20 13:15] VITALS: BP 144/82; TEMP 98.2; O2SAT 99
[2023-09-20] MEDS ORDERED: MIRALAX *UNIT DOSE* 17GM PACKET PO PRN (14:05)
[2023-09-20] MEDS ORDERED: ACETAMINOPHEN TAB 650MG DOSE (2X325MG) PO PRN (14:05)
[2023-09-20] MEDS ORDERED: ONDANSETRON 4MG TAB PO PRN (14:05)
[2023-09-20] MEDS ORDERED: MOM 30ML SUSPENSION UDC PO PRN (14:05)
[2023-09-20] MEDS ORDERED: BENZONATATE 100MG CAPSULE PO PRN (14:15)
[2023-09-20] MEDS ORDERED: LEVALBUTEROL HFA 45MCG/ACT 15GM INHALER INH PRN (14:15)
[2023-09-20] MEDS ORDERED: ALBUTEROL 90 MCG/ACT 8GM HFA INHALER INH PRN (14:15)
[2023-09-20] MEDS: CALCIUM CARBONATE 500 MG CHEW U/D PO SCH (18:03)
[2023-09-20 20:00] VITALS: BP 133/64; TEMP 97.5; O2SAT 98
[2023-09-20] MEDS: ATORVASTATIN 20 MG TAB PO SCH (20:10)
[2023-09-20] MEDS: APIXABAN 5 MG TAB (ELIQUIS) PO SCH (20:10)
[2023-09-21 06:00] VITALS: BP 120/64; TEMP 96.6; O2SAT 97
[2023-09-21 06:44] LABS: BASO % 0.3 % (0.0-1.0); EOS # 0.1 10^3/uL (0.0-0.5); EOS % 1.4 % (0.0-3.0); HEMATOCRIT 39.1 % (36.0-47.0); HEMOGLOBIN 12.8 g/dl (12.0-15.5); LYMPH # 3.1 10^3/uL (1.5-5.0); LYMPH % 44.3 % (24.0-44.0); MEAN CORPUSCULAR HEMOGLOBIN 29.8 pg (27.0-33.0); MEAN CORPUSCULAR HGB CONC 32.7 g/dl (32.0-36.5); MEAN CORPUSCULAR VOLUME 91.1 fl (80.0-96.0); MONO # 0.3 10^3/uL (0.0-0.8); MONO % 4.9 % (2.0-8.0); NEUTROPHILS # 3.4 10^3/uL (1.5-8.5); NEUTROPHILS % 48.8 % (36.0-66.0); PLATELET COUNT, AUTOMATED 211 10^3/uL (150-450); RED BLOOD COUNT 4.29 10^6/uL (4.00-5.40)
[2023-09-21 07:16] LABS: BLOOD UREA NITROGEN 15 MG/DL (9-23); CALCIUM LEVEL 9.1 MG/DL (8.3-10.6); CARBON DIOXIDE LEVEL 27 MMOL/L (20-31); CHLORIDE LEVEL 106 MMOL/L (98-107); CREATININE FOR GFR 0.82 MG/DL (0.55-1.30); GLOMERULAR FILTRATION RATE > 60.0 (>45); GLUCOSE, FASTING 97 MG/DL (74-106); POTASSIUM SERUM 4.3 MMOL/L (3.5-5.1); SODIUM LEVEL 139 MMOL/L (136-145)
[2023-09-21] MEDS: VITAMIN D 1,000 INTERNATIONAL UNITS TABLET PO SCH (07:53)
[2023-09-21] MEDS: CALCIUM CARBONATE 500 MG CHEW U/D PO SCH ×3 (07:53→17:40)
[2023-09-21] MEDS: APIXABAN 5 MG TAB (ELIQUIS) PO SCH ×2 (07:53→20:11)
[2023-09-21] MEDS ORDERED: MULTIVITAMINS CHILDREN'S CHEWABLE TABLET PO SCH (09:00)
[2023-09-21] MEDS: ACETAMINOPHEN 500 MG TAB PO PRN (09:34)
[2023-09-21 14:00] VITALS: BP 128/71; TEMP 97.9; O2SAT 98
[2023-09-21 20:00] VITALS: BP 127/68; TEMP 97.2; O2SAT 97
[2023-09-21] MEDS: ATORVASTATIN 20 MG TAB PO SCH (20:11)
[2023-09-22] MEDS: ACETAMINOPHEN 500 MG TAB PO PRN ×2 (03:24→20:24)
[2023-09-22 06:00] VITALS: BP 109/63; TEMP 96.5; O2SAT 99
[2023-09-22] MEDS ORDERED: NEXIUM PO SCH (09:00)
[2023-09-22] MEDS ORDERED: MULTIVITAMIN PO SCH (09:00)
[2023-09-22] MEDS: VITAMIN D 1,000 INTERNATIONAL UNITS TABLET PO SCH (09:37)
[2023-09-22] MEDS: APIXABAN 5 MG TAB (ELIQUIS) PO SCH ×2 (09:37→20:22)
[2023-09-22] MEDS: CALCIUM CARBONATE 500 MG CHEW U/D PO SCH ×3 (09:40→17:22)
[2023-09-22 14:00] VITALS: BP 129/62; TEMP 98; O2SAT 97
[2023-09-22] MEDS: NEXIUM 40 MG PO SCH (17:23)
[2023-09-22 20:00] VITALS: BP 148/67; TEMP 98.6; O2SAT 98
[2023-09-22] MEDS: ATORVASTATIN 20 MG TAB PO SCH (20:22)
[2023-09-23] MEDS: NEXIUM 40 MG PO SCH ×2 (05:11→17:08)
[2023-09-23] MEDS: ACETAMINOPHEN 500 MG TAB PO PRN ×3 (05:11→20:25)
[2023-09-23 06:01] VITALS: BP 137/66; TEMP 98.2; O2SAT 99
[2023-09-23] MEDS: CALCIUM CARBONATE 500 MG CHEW U/D PO SCH ×3 (08:56→17:08)
[2023-09-23] MEDS: VITAMIN D 1,000 INTERNATIONAL UNITS TABLET PO SCH (08:56)
[2023-09-23] MEDS: APIXABAN 5 MG TAB (ELIQUIS) PO SCH ×2 (08:56→20:25)
[2023-09-23 14:00] VITALS: BP 129/69; TEMP 98.2; O2SAT 97
[2023-09-23 19:45] VITALS: BP 127/67; TEMP 98.8; O2SAT 99
[2023-09-23] MEDS: DOCUSATE SODIUM 100MG CAPSULE PO PRN (20:24)
[2023-09-23] MEDS: ATORVASTATIN 20 MG TAB PO SCH (20:25)
[2023-09-24 05:35] VITALS: BP 111/69; TEMP 96.8; O2SAT 99
[2023-09-24] MEDS: NEXIUM 40 MG PO SCH ×2 (05:53→17:43)
[2023-09-24] MEDS: APIXABAN 5 MG TAB (ELIQUIS) PO SCH ×2 (08:13→20:17)
[2023-09-24] MEDS: CALCIUM CARBONATE 500 MG CHEW U/D PO SCH ×3 (08:13→17:43)
[2023-09-24] MEDS: VITAMIN D 1,000 INTERNATIONAL UNITS TABLET PO SCH (08:13)
[2023-09-24] MEDS: ACETAMINOPHEN 500 MG TAB PO PRN ×2 (11:02→23:22)
[2023-09-24 14:00] VITALS: BP 139/65; TEMP 98.5; O2SAT 98
[2023-09-24] MEDS: ATORVASTATIN 20 MG TAB PO SCH (20:17)
[2023-09-24 20:22] VITALS: BP 127/68; TEMP 98; O2SAT 98
[2023-09-25 05:40] VITALS: BP 136/63; TEMP 97.6; O2SAT 98
[2023-09-25] MEDS: DOCUSATE SODIUM 100MG CAPSULE PO PRN (05:46)
[2023-09-25] MEDS: NEXIUM 40 MG PO SCH ×2 (05:47→17:16)
[2023-09-25 07:05] LABS: CHOLESTEROL RISK RATIO 2.08 (<5); LDL CHOLESTEROL 49.6 MG/DL (<100)
[2023-09-25] MEDS: VITAMIN D 1,000 INTERNATIONAL UNITS TABLET PO SCH (08:28)
[2023-09-25] MEDS: CALCIUM CARBONATE 500 MG CHEW U/D PO SCH ×3 (08:28→17:16)
[2023-09-25] MEDS: APIXABAN 5 MG TAB (ELIQUIS) PO SCH ×2 (08:28→20:11)
[2023-09-25 14:00] VITALS: BP 126/61; TEMP 97.6; O2SAT 99
[2023-09-25 19:57] VITALS: BP 118/58; TEMP 97.5; O2SAT 98
[2023-09-25] MEDS: ATORVASTATIN 20 MG TAB PO SCH (20:11)
[2023-09-25] MEDS: ACETAMINOPHEN 500 MG TAB PO PRN (20:12)
[2023-09-26] MEDS: NEXIUM 40 MG PO SCH ×2 (05:39→17:29)
[2023-09-26] MEDS: ACETAMINOPHEN 500 MG TAB PO PRN ×2 (05:40→20:34)
[2023-09-26 06:00] VITALS: BP 140/66; TEMP 97.2; O2SAT 98
[2023-09-26] MEDS: VITAMIN D 1,000 INTERNATIONAL UNITS TABLET PO SCH (07:32)
[2023-09-26] MEDS: APIXABAN 5 MG TAB (ELIQUIS) PO SCH ×2 (07:32→20:33)
[2023-09-26] MEDS: CALCIUM CARBONATE 500 MG CHEW U/D PO SCH ×3 (07:32→17:28)
[2023-09-26 14:00] VITALS: BP 131/70; TEMP 98.2; O2SAT 100
[2023-09-26 20:00] VITALS: BP_SYST 118; BP_SYST 131; BP_DIAS 66; BP_DIAS 67; TEMP 98; TEMP 98.2; O2SAT 98; O2SAT 99
[2023-09-26] MEDS: ATORVASTATIN 20 MG TAB PO SCH (20:33)
[2023-09-27] MEDS: NEXIUM 40 MG PO SCH ×2 (05:31→17:41)
[2023-09-27] MEDS: ACETAMINOPHEN 500 MG TAB PO PRN ×2 (05:32→20:15)
[2023-09-27 06:00] VITALS: BP 131/60; TEMP 97.3; O2SAT 98
[2023-09-27] MEDS: CALCIUM CARBONATE 500 MG CHEW U/D PO SCH ×3 (08:35→17:40)
[2023-09-27] MEDS: VITAMIN D 1,000 INTERNATIONAL UNITS TABLET PO SCH (08:35)
[2023-09-27] MEDS: APIXABAN 5 MG TAB (ELIQUIS) PO SCH ×2 (08:35→20:15)
[2023-09-27 14:00] VITALS: BP 131/71; TEMP 98.1; O2SAT 99
[2023-09-27 20:00] VITALS: BP 124/62; TEMP 97.2; O2SAT 98
[2023-09-27] MEDS: ATORVASTATIN 20 MG TAB PO SCH (20:15)
[2023-09-28] MEDS: ACETAMINOPHEN 500 MG TAB PO PRN (05:42)
[2023-09-28] MEDS: NEXIUM 40 MG PO SCH (05:42)
[2023-09-28 06:00] VITALS: BP 119/58; TEMP 97.6; O2SAT 100
[2023-09-28] MEDS: APIXABAN 5 MG TAB (ELIQUIS) PO SCH (08:44)
[2023-09-28] MEDS: VITAMIN D 1,000 INTERNATIONAL UNITS TABLET PO SCH (08:44)
[2023-09-28] MEDS: CALCIUM CARBONATE 500 MG CHEW U/D PO SCH (08:44)
[2023-09-28] MEDS ORDERED: ELIQ5TAB PO (10:47)
[2023-09-28] MEDS ORDERED: ATOR1TAB21 PO (10:47)
== END 2023-09-28 11:45 | disposition home or self-care (01) | DRG 57 ==
LOC: M PM&R 13:04 → UNDOADMIN 13:04 → M PM&R 13:15
PROVIDERS: ADMIT Physical Medicine & Rehabilitation; ATTEND Physical Medicine & Rehabilitation
DX: I69.364 Other paralytic syndrome following cerebral infarction affecting left non-dominant side (principal); Z85.3 Personal history of malignant neoplasm of breast; E78.5 Hyperlipidemia, unspecified; K21.9 Gastro-esophageal reflux disease without esophagitis; Z79.899 Other long term (current) drug therapy; Z88.8 Allergy status to other drugs, medicaments and biological substances; Z79.01 Long term (current) use of anticoagulants; Z98.84 Bariatric surgery status

== ENCOUNTER 2023-10-26 10:43 | Outpatient (RCR) | payer MEDICARE, OTHER ==
[~2023-10-26 10:43] MED LIST changes: +ATOR1TAB21 PO; +ELIQ5TAB PO
== END 2023-10-27 ==
LOC: M PT 10:43
PROVIDERS: ATTEND Student in an Organized Health Care Education/Training Program
DX: I63.9 Cerebral infarction, unspecified (principal)

== ENCOUNTER → 2023-10-30 | Outpatient (CLI) | payer MEDICARE, OTHER ==
[~2023-10-30] MED LIST changes: +ASPI81CH33 PO; +MULT1CHW29 PO
== END ==
LOC: M EKG 09:16
PROVIDERS: ATTEND Internal Medicine Cardiovascular Disease
DX: Z86.73 Personal history of transient ischemic attack (TIA), and cerebral infarction without residual deficits (principal)

== ENCOUNTER → 2024-01-17 | Outpatient (REF) | payer MEDICARE, OTHER ==
[2024-01-17 17:14] LABS: IRON (FE) 72 UG/DL (50-170); TOTAL IRON BINDING CAPACITY 401 UG/DL (250-425)
[2024-01-17 17:17] LABS: FERRITIN 6.3 NG/ML (7.3-270.7)
[2024-01-17 17:18] LABS: FOLATE > 24.00 NG/ML (>5.4)
== END ==
LOC: M LAB REF 16:23
PROVIDERS: ATTEND Nurse Practitioner Family
DX: Z98.84 Bariatric surgery status (principal); Z86.39 Personal history of other endocrine, nutritional and metabolic disease

== ENCOUNTER → 2024-04-03 | Outpatient (REF) | payer MEDICARE, OTHER ==
[2024-04-03 17:18] LABS: PERCENT SATURATION 12.4 % (13.2-45.0)
[2024-04-03 17:20] LABS: FERRITIN 5.4 NG/ML (7.3-270.7)
== END ==
LOC: M LAB REF 16:18
PROVIDERS: ATTEND Nurse Practitioner Family
DX: Z98.84 Bariatric surgery status (principal)

== ENCOUNTER → 2024-08-02 | Outpatient (CLI) | payer MEDICARE, OTHER ==
[~2024-08-02] MED LIST changes: +LEVA15HF2 INH; -LEVAINH INH
== END ==
LOC: M WHC 10:32
PROVIDERS: ATTEND Plastic Surgery Surgery of the Hand
DX: T85.848A Pain due to other internal prosthetic devices, implants and grafts, initial encounter (principal); C50.411 Malignant neoplasm of upper-outer quadrant of right female breast

== ENCOUNTER → 2024-08-02 | Outpatient (CLI) | payer MEDICARE, OTHER | LOC: M RAD 09:31 | PROVIDERS: ATTEND Plastic Surgery Surgery of the Hand | DX: C50.411 Malignant neoplasm of upper-outer quadrant of right female breast (principal); T85.848A Pain due to other internal prosthetic devices, implants and grafts, initial encounter ==

== ENCOUNTER → 2024-08-15 | Outpatient (REF) | payer MEDICARE, OTHER ==
[2024-08-15 17:29] LABS: IRON (FE) 65 UG/DL (50-170); PERCENT SATURATION 18.7 % (13.2-45.0); PHOSPHORUS LEVEL 3.3 MG/DL (2.4-5.1); TOTAL IRON BINDING CAPACITY 348 UG/DL (250-425)
[2024-08-15 17:30] LABS: IMMUNOGLOBULIN A 151.2 MG/DL (40-350); IMMUNOGLOBULIN G 886 MG/DL (650-1600)
[2024-08-15 17:33] LABS: FERRITIN 17.1 NG/ML (7.3-270.7)
[2024-08-15 17:34] LABS: FOLATE > 24.0 NG/ML (>5.4); TOTAL 25(OH) VITAMIN D 58.5 NG/ML (20.0-100.0)
[2024-08-15 20:21] LABS: VITAMIN B12 LEVEL > 2000 PG/ML (211-911)
[2024-08-19 23:28] LABS: ALKALINE PHOSPHATASE ISO-MACR0 0 % (<=0); ALKALINE PHOSPHATASE ISO-PLAC 0 % (<=0); Alkaline Phosphatase Iso-Bone 41 % (28-66); Alkaline Phosphatase Iso-Intes 0 % (1-24); Alkaline Phosphatase Iso-Liver 59 % (25-69); TOTAL ALK PHOS 110 U/L (37-153)
[2024-08-20 12:23] LABS: VITAMIN A, RETINOL LEVEL 51 mcg/dL (38-98)
[2024-08-20 15:08] LABS: IgG SERUM (part of Subclasses) 834 mg/dL (600-1540); IgG Subclass 1 438 mg/dL (382-929); IgG Subclass 2 291 mg/dL (241-700); IgG Subclass 3 46 mg/dL (22-178); IgG Subclass 4 33.6 mg/dL (4.0-86.0)
[2024-08-22 19:55] LABS: VITAMIN B1 LEVEL WHOLE BLOOD 128 nmol/L (78-185)
== END ==
LOC: M LAB REF 16:27
PROVIDERS: ATTEND Nurse Practitioner Family
DX: Z98.84 Bariatric surgery status (principal); B99.9 Unspecified infectious disease; R74.8 Abnormal levels of other serum enzymes

== ENCOUNTER → 2025-04-30 | Outpatient (CLI) | payer MEDICARE, OTHER ==
[~2025-04-30] MED LIST changes: +ATOR80TA59 PO; +B-12100020 PO; +FERR30CA PO; +MECL-169 PO
== END ==
LOC: M WHC 09:24
PROVIDERS: ATTEND Nurse Practitioner Family
DX: M85.89 Other specified disorders of bone density and structure, multiple sites (principal)

== ENCOUNTER → 2025-05-09 | Outpatient (REF) | payer MEDICARE, OTHER ==
[2025-05-09 12:46] LABS: IRON (FE) 132.0 UG/DL (50-170); PERCENT SATURATION 38.9 % (13.2-45.0)
== END ==
LOC: M LAB REF 11:54
PROVIDERS: ATTEND Nurse Practitioner Family
DX: E61.1 Iron deficiency (principal)

== ENCOUNTER → 2025-08-29 | Outpatient (REF) | payer MEDICARE, OTHER ==
[2025-08-29 13:17] LABS: IRON (FE) 82.0 UG/DL (50-170); PERCENT SATURATION 30.7 % (13.2-45.0)
== END ==
LOC: M LAB REF 12:40
PROVIDERS: ATTEND Nurse Practitioner Family
DX: E61.1 Iron deficiency (principal)